=== PATIENT | male | born 1990 | race Caucasian/White ===

== ENCOUNTER 2017-04-12 01:17 | Emergency (ER) | payer OTHER ==
[~2017-04-12] VITALS: Ht 152.4 cm; Wt 63.9 kg
[2017-04-12 01:21] VITALS: Ht 152.4 cm; Wt 63.9 kg
[2017-04-12] MEDS ORDERED: ONDANSETRON (ODT) 4 MG TAB ODT STA (02:11)
[2017-04-12] MEDS ORDERED: FAMOTIDINE 20 MG TAB PO ONE (02:30)
[2017-04-12] MEDS ORDERED: LIDOCAINE/MYLANTA 40 ML BTL PO ONE (02:30)
[2017-04-12] MEDS ORDERED: BELLADONNA/PHENOBARBITAL TAB PO ONE (02:30)
[2017-04-12] MEDS ORDERED: FAMO-96 PO (02:50)
[2017-04-12] MEDS ORDERED: SUCR1TAB56 PO (02:50)
[2017-04-12] MEDS ORDERED: OMEP20CA16 PO (02:50)
--- NOTE | 2017-04-12 03:11 | ERD ---
ER Documentation Chief Complaint Chief Complaint epigastric pain on/off x 3 mos, pt said he vomited x 2 earlier today HPI This is a 26-year-old male presents to the ER with epigastric pain is described as burning for the last 3 months. Patient states that epigastric pain is intermittent and occurs after he eats hot food. That he is [place] and this is what he eats. Patient states that he also has nausea and vomiting secondary to burning sensation in the epigastrium. Vomiting is nonbilious nonbloody. Denies any chest pain or shortness of breath. He denies any fevers or chills. He has not tried anything for his pain or discomfort. ROS 12 point review of systems was done, all negative except per HPI. Medications Home Meds Active Scripts Omeprazole* (Omeprazole*) 20 Mg Capsule.dr, 20 MG PO BID for 14 Days, #20 Prov:INGA,ASHOK C 04/12/17 Sucralfate* (Carafate*) 1 Gm Tab, 1 GM PO QID for 7 Days, TAB Prov:INGA,ASHOK C 04/12/17 Famotidine* (Pepcid*) 20 Mg Tablet, 20 MG PO BID for 4 Days, TAB Prov:INGA,ASHOK C 04/12/17 Allergies Allergies: Coded Allergies: No Known Allergy (Unverified , 04/12/17) PMhx/Soc Medical and Surgical Hx: pt denies Medical Hx, pt denies Surgical Hx History of Surgery: No Anesthesia Reaction: No Hx Neurological Disorder: No Hx Respiratory Disorders: No Hx Cardiac Disorders: No Hx Psychiatric Problems: No Hx Miscellaneous Medical Probl: No Hx Alcohol Use: No Hx Substance Use: Yes (MARIJUANA) Hx Tobacco Use: No Smoking Status: Never smoker Physical Exam Vitals Vital Signs Date Time Temp Pulse Resp B/P Pulse Ox O2 Delivery O2 Flow Rate FiO2 04/12/17 01:21 98.1 64 20 125/79 99 Physical Exam GENERAL: The patient is well developed and appropriate for usual state of health , in no apparent distress. HEENT: Atraumatic. CHEST: Clear to auscultation bilaterally. There are no rales, wheezes or rhonchi. HEART: Regular rate and rhythm. No murmurs, clicks, rubs or gallops. ABDOMEN: Soft, nontender and nondistended. Good bowel sounds. No rebound or guarding. No gross peritonitis. No gross organomegaly or masses. No Dailey sign or McBurney point tenderness. NEURO: Alert and oriented. SKIN: There is no apparent rash or petechia. The skin is warm and dry. Results 24 hrs Current Medications Medications (Trade) Dose Ordered Sig/Mega Route PRN Reason Start Time Stop Time Status Last Admin Dose Admin Famotidine (Pepcid) 20 mg ONCE ONCE PO 04/12/17 02:30 04/12/17 02:31 DC 04/12/17 02:33 Miscellaneous Medication (Gi Cocktail (2)) 40 ml ONCE ONCE PO 04/12/17 02:30 04/12/17 02:31 DC 04/12/17 02:33 Belladonna/ Phenobarbital () 1 tab ONCE ONCE PO 04/12/17 02:30 04/12/17 02:31 DC 04/12/17 02:33 Ondansetron HCl (Zofran Odt) 4 mg ONCE STAT ODT 04/12/17 02:11 04/12/17 02:13 DC 04/12/17 02:34 Procedures/MDM Differential Diagnosis: GERD, gastritis, peptic ulcer disease, pancreatitis, cholecystitis, choledocholithiasis, biliary colic, cholangitis, Zasl-Hadw-Ovuewi , ACS/SC, Pnuemonia. Symptoms are most consistent with acid reflux. Patient was given famotidine, GI cocktail and belladonna in the ER, he felt significantly better. Patient will be sent home with famotidine, omeprazole and Carafate. At this time suspicion for acute abdomen is low. Patient's physical examination is benign and he is not tender in the abdomen. Patient's symptoms have been going on over the last 3 months, this is likely acute on chronic pain. I advised patient to see a GI doctor as soon as possible. He should return to ER sooner if symptoms worsen. My medical decision making shared with the patient he understands and agrees with plan. Departure Diagnosis: Primary Impression: Epigastric pain Condition: Stable Patient Instructions: Gerd (Adult) Additional Instructions: Call your primary care doctor TOMORROW for an appointment during the next 1-2 days.See the doctor sooner or return here if your condition worsens before your appointment time. IF EPIGASTRIC PAIN CONTINUES PLEASE SEE A FINISHING SUPERVISOR [employer] FOR ENDOSCOPY. ASK YOUR PCP FOR A REFERRAL! ASHOK XIONG Apr 12, 2017 03:11
== END 2017-04-12 03:09 | disposition home or self-care (01) ==
LOC: FTE 01:17
DX: R10.13 Epigastric pain (principal)
CPT/HCPCS: Z7502; Z7610; 99283

== ENCOUNTER 2018-03-29 17:52 | Emergency (ER) | END 2018-03-29 19:51 | disposition home or self-care (01) ==

== ENCOUNTER 2018-12-29 21:36 | Emergency (ER) | payer OTHER ==
[~2018-12-29] VITALS: Ht 162.6 cm; Wt 71.0 kg
[~2018-12-29 21:36] MED LIST: FAMO-96 PO; HYDR-4011 PO; NAPR-985 PO; OMEP20CA16 PO; OMEP40CA6 PO; RANI150T35 PO; SUCR1TAB56 PO
[2018-12-29 21:37] VITALS: Ht 162.6 cm; Wt 71.0 kg
[2018-12-29] MEDS ORDERED: IBUPROFEN 600 MG TAB PO ONE (22:30)
--- NOTE | 2018-12-30 01:04 | ERD ---
ER Documentation Chief Complaint Chief Complaint left knee pain, landed on his left knee during succoer game. HPI 28-year-old male presents to the emergency department complaining of 10/10, constant, worse with movement, left knee pain after injury just prior to arrival. The patient was running during a soccer game and someone ran into him causing him to fall directly on the left knee. He took no medication for relief of symptoms. He denies any fevers, chills, loss of consciousness, or other symptoms or injuries at this time. ROS All systems reviewed and are negative except as per history of present illness. Medications Home Meds Active Scripts Naproxen* (Naprosyn*) 500 Mg Tablet, 500 MG PO BID PRN for PAIN AND/OR INFLAMMATION, #30 TAB Prov:ROSCOE GAITAN PA-C 12/30/18 Ranitidine Hcl* (Zantac*) 150 Mg Tablet, 150 MG PO BID PRN for EPIGASTRIC PAIN, #30 TAB Prov:EDWIN WAGNER. CHEMISTRY TEACHER 03/29/18 Omeprazole* (Omeprazole*) 40 Mg Capsule.dr, 40 MG PO DAILY for 14 Days, #14 CAP Prov:EDWIN WAGNER. CHEMISTRY TEACHER 03/29/18 Omeprazole* (Omeprazole*) 20 Mg Capsule.dr, 20 MG PO BID for 14 Days, #20 Prov:ASHOK XIONG 04/12/17 Sucralfate* (Carafate*) 1 Gm Tab, 1 GM PO QID for 7 Days, TAB Prov:ASHOK XIONG 04/12/17 Famotidine* (Pepcid*) 20 Mg Tablet, 20 MG PO BID for 4 Days, TAB Prov:ASHOK XIONG 04/12/17 Allergies Allergies: Coded Allergies: No Known Allergy (Unverified , 12/29/18) PMhx/Soc Medical and Surgical Hx: pt denies Medical Hx, pt denies Surgical Hx History of Surgery: No Anesthesia Reaction: No Hx Neurological Disorder: No Hx Respiratory Disorders: No Hx Cardiac Disorders: No Hx Psychiatric Problems: No Hx Miscellaneous Medical Probl: No Hx Alcohol Use: No Hx Substance Use: Yes (MARIJUANA) Hx Tobacco Use: No Smoking Status: Never smoker FmHx Family History: No diabetes Physical Exam Vitals Vital Signs Date Temp Pulse Resp B/P (MAP) Pulse Ox O2 O2 Flow FiO2 Time Delivery Rate 12/29/18 97.0 88 14 142/75 99 21:37 (97) Physical Exam Const: No acute distress Head: Atraumatic Eyes: Normal Conjunctiva ENT: Normal External Ears, Nose and Mouth. Neck: Full range of motion. No meningismus. Resp: No respiratory distress. Skin: No petechiae or rashes Back: No midline or flank tenderness Ext: Tenderness palpation of the left anterior knee. Limited range of motion secondary to pain. Patient is neurovascularly intact to the left lower extremity. Unable to complete anterior/posterior drawer test secondary to pain. Neur: Awake and alert Psych: Normal Mood and Affect Results 24 hrs Current Medications Medications Dose Sig/Mega Start Time Status Last (Trade) Ordered Route PRN Stop Time Admin Dose Reason Admin Ibuprofen 600 mg ONCE ONCE 12/29/18 DC 12/29/18 (Motrin) PO 22:30 22:18 12/29/18 22:31 [place] [address] Rad[address] Main Line: [phone] DIAGNOSTIC IMAGING REPORT Patient: DAMARIS MARTIN : 1990 Age: 28 Sex: M MR #: [id number] DOS: 12/29/18 0000 Ordering MD: ROSCOE GAITAN PA-C Location: [facility] Room/Bed: PROCEDURE: Left knee x-ray CLINICAL INDICATION: L knee pain TECHNIQUE: AP, lateral and oblique views of the left knee were obtained. COMPARISON: None FINDINGS: No acute fracture is seen. Alignment and mineralization are normal. There are no significant degenerative changes. Small joint effusion noted. Soft tissues otherwise unremarkable. IMPRESSION: Small left knee joint effusion. No acute fracture identified. RPTAT:HCLE Physician Bernard Date Time Electronically viewed and signed by Physician Bernard on 12/30/2018 00:37 cE/ CC: ROSCOE GAITAN PA-C [phone] Procedures/MDM 28-year-old male presents to the emergency department complaining of left knee injury. X-ray is negative for any sign of fracture but did show joint effusion. Patient was neurovascularly intact to the left lower extremity. Patient required immobilization of the left knee secondary to swelling.Splint Assessment: Neurovascularly intact post splint placement with good fit. Patient's extremity symptoms have stabilized while they have been evaluated in the department and are appropriate for outpatient follow up. No evidence of compartment syndrome, neurologic injury, vascular injury, open joint, open fracture, tendon laceration, or foreign body. I did advise for 24 to 48-hour follow-up with orthopedic physician. Patient is in agreement with the diagnosis, plan, need for follow-up, return precautions. Orthopedic references were given. No evidence of life-threatening pathology at time of discharge. Pt/family in a greement with discharge plan/diagnosis. Pt/family advised to return immediately with any new or worsening symptoms. Follow-up with primary care physician within the next 1-2 days. Departure Diagnosis: Primary Impression: Left knee injury Encounter type: initial encounter Qualified Codes: S89.92XA - Unspecified injury of left lower leg, initial encounter Condition: Fair Patient Instructions: Knee Effusion Referrals: [facility] YOU HAVE RECEIVED A MEDICAL SCREENING EXAM AND THE RESULTS INDICATE THAT YOU DO NOT HAVE A CONDITION THAT REQUIRES URGENT TREATMENT IN THE EMERGENCY DEPARTMENT. FURTHER EVALUATION AND TREATMENT OF YOUR CONDITION CAN WAIT UNTIL YOU ARE SEEN IN YOUR DOCTORS OFFICE WITHIN THE NEXT 1-2 DAYS. IT IS YOUR RESPONSIBILITY TO MAKE AN APPOINTMENT FOR FOLOW-UP CARE. IF YOU HAVE A PRIMARY DOCTOR --you should call your primary doctor and schedule an appointment IF YOU DO NOT HAVE A PRIMARY DOCTOR YOU CAN CALL OUR PHYSICIAN REFERRAL HOTLINE AT IF YOU CAN NOT AFFORD TO SEE A PHYSICIAN YOU CAN CHOSE FROM THE FOLLOWING [facility] [id number] [facility] [address] [facility] [address] [facility] [address] [facility] [address] [facility]. [facility] [address] [facility] Urgent Care 7 a.m.- 11 p.m. Every Day of the Week NO APPOINTMENT OR AUTHORIZATION NEEDED SO [facility] Hours: Mon-Fri 9:00 AM - 5:00 PM Additional Instructions: SPECIALIST: YOU HAVE A MEDICAL CONDITION WHICH REQUIRES YOU TO SEE A SPECIALIST WITHIN THE NEXT 1-2 DAYS. PLEASE FOLLOW UP WITH YOUR PRIMARY PHYSICIAN FOR REFFERAL.IF YOU DO NOT HAVE A PRIMARY CARE PHYSICIAN AND/OR YOU CAN NOT AFFORD TO SEE A PHYSICIAN THE FOLLOWING RESOURCES HAVE BEEN SUPPLIED TO YOU. IT IS YOUR RESPONSIBILITY TO BE SEEN BY THE SPECIALIST: KNEE IMMOBILIZER ROSCOE GAITAN PA-C Dec 30, 2018 01:04
[2018-12-30 01:08] VITALS: BP 147/99; PULSE 62; RESP 18
== END 2018-12-30 01:10 | disposition home or self-care (01) ==
LOC: FTE 21:36
DX: S89.92XA Unspecified injury of left lower leg, initial encounter (principal); W50.0XXA Accidental hit or strike by another person, initial encounter; Y92.322 Soccer field as the place of occurrence of the external cause
CPT/HCPCS: 29505; 73562; Z7502; Z7610

== ENCOUNTER 2019-01-19 06:19 | Emergency (ER) | payer OTHER ==
[~2019-01-19] VITALS: Ht 157.5 cm; Wt 70.5 kg
[2019-01-19 06:21] VITALS: BP 127/92; PULSE 71; RESP 17; Ht 157.5 cm; Wt 70.5 kg
[2019-01-19] MEDS ORDERED: ONDANSETRON (ODT) 4 MG TAB ODT STA (06:36)
[2019-01-19] MEDS ORDERED: HYDROCODONE/APAP (5/325) TAB PO ONE (07:00)
--- NOTE | 2019-01-19 07:15 | ERD ---
ER Documentation Chief Complaint Chief Complaint Twisted left knee x few hours , same problem 4 wks ago HPI 28-year-old male presenting with pain to his left knee. He states 3 weeks ago his knee gave out on him when this morning he had a similar incident. He feels that his knee is weak and he has had to wear a knee splint. He denies any numbness or tingling or swelling. He has pain with movement but is able to move it. He does not feel that his kneecap is currently dislocated. He had x-rays done a few days ago that were normal and is awaiting an appointment follow-up with his primary doctor to obtain referral for specialist. Denies other medical problems. NKDA. Surgical history denies. Social history denies ROS All systems reviewed and are negative except as per history of present illness. Medications Home Meds Active Scripts Naproxen* (Naprosyn*) 500 Mg Tablet, 500 MG PO BID PRN for PAIN AND/OR INFLAMMATION, #30 TAB Prov:VENTURA TALLEY PA-C 01/19/19 Hydrocodone/Acetaminophen (Oneida 5-325 Tablet) 1 Each Tablet, 1 TAB PO Q6H PRN for PAIN, #7 TAB Prov:VENTURA TALLEY PA-C 01/19/19 Naproxen* (Naprosyn*) 500 Mg Tablet, 500 MG PO BID PRN for PAIN AND/OR INFLAMMATION, #30 TAB Prov:ROSCOE GAITAN PA-C 12/30/18 Ranitidine Hcl* (Zantac*) 150 Mg Tablet, 150 MG PO BID PRN for EPIGASTRIC PAIN, #30 TAB Prov:EDWIN WAGNER NP 03/29/18 Omeprazole* (Omeprazole*) 40 Mg Capsule., 40 MG PO DAILY for 14 Days, #14 CAP Prov:EDWIN WAGNER NP 03/29/18 Omeprazole* (Omeprazole*) 20 Mg Capsule., 20 MG PO BID for 14 Days, #20 Prov:ASHOK XIONG 04/12/17 Sucralfate* (Carafate*) 1 Gm Tab, 1 GM PO QID for 7 Days, TAB Prov:ASHOK XIONG 04/12/17 Famotidine* (Pepcid*) 20 Mg Tablet, 20 MG PO BID for 4 Days, TAB Prov:ASHOK XIONG 04/12/17 Allergies Allergies: Coded Allergies: No Known Allergy (Unverified , 01/19/19) PMhx/Soc Medical and Surgical Hx: pt denies Medical Hx, pt denies Surgical Hx History of Surgery: No Anesthesia Reaction: No Hx Neurological Disorder: No Hx Respiratory Disorders: No Hx Cardiac Disorders: No Hx Psychiatric Problems: No Hx Miscellaneous Medical Probl: No Hx Alcohol Use: No Hx Substance Use: Yes (MARIJUANA) Hx Tobacco Use: No Smoking Status: Never smoker FmHx Family History: No diabetes, No coronary disease, No other Physical Exam Vitals Vital Signs Date Temp Pulse Resp B/P (MAP) Pulse Ox O2 O2 Flow FiO2 Time Delivery Rate 01/19/19 97.6 71 17 127/92 98 06:21 (104) Physical Exam GENERAL: The patient is well-appearing, well-nourished, in no acute distress HEENT: Atraumatic. Conjunctivae are pink. Pupils equal, round, and reactive to light. There is no scleral icterus. Tympanic membranes clear bilaterally. Oropharynx clear. CHEST: Clear to auscultation bilaterally. There are no rales, wheezes or rhonchi. HEART: Regular rate and rhythm. No murmurs, clicks, rubs or gallops. EXTREMITIES: Good range of motion of the left knee secondary to pain. No obvious swelling and questionable varus deformity. No tenderness over the pat flavio. NEUROLOGIC: Alert and oriented. Cranial nerves II through XII intact. Motor strength in all 4 extremities with 5 out of 5 strength. Sensation grossly intact. SKIN: There is no apparent rash or petechiae. The skin is warm and dry. Results 24 hrs Current Medications Medications Dose Sig/Mega Start Time Status Last (Trade) Ordered Route PRN Stop Time Admin Dose Reason Admin 1 tab ONCE ONCE 01/19/19 DC 01/19/19 Acetaminophen PO 07:00 06:41 / 01/19/19 07:00 Hydrocodone Bitart (Oneida (5/325)) Ondansetron 4 mg ONCE STAT 01/19/19 DC 01/19/19 HCl (Zofran ODT 06:36 06:41 Odt) 01/19/19 06:37 Procedures/MDM ER course: Patient does not want x-ray at this time. He will with like an MRI which I recommended to perform outpatient. Patient has a knee immobilizer at home and is currently wearing a smaller brace. He also has crutches. Patient is recommended to call primary care doctor tomorrow to request MRI. I have low suspicion for acute fracture dislocation and I have low suspicion for dislocation at this time. Patient likely has ligamentous injury. Patient is told symptoms change or worsen to return immediately to the ER. I have low suspicion for infectious process. All questions answered at discharge Departure Diagnosis: Primary Impression: Knee pain Condition: Stable Patient Instructions: Knee Pain, Uncertain Cause Referrals: [facility] (PCP) Additional Instructions: FOLLOW UP WITH YOUR PRIMARY CARE PHYSICIAN TOMORROW.Return to this facility if you are not improving as expected. VENTURA TALLEY PA-C Jan 19, 2019 07:15
== END 2019-01-19 06:45 | disposition home or self-care (01) ==
LOC: FTE 06:19
DX: M25.562 Pain in left knee (principal)
CPT/HCPCS: Z7502; Z7610; 99283